=== PATIENT | male | born 1965 | race African-American/Black ===

== ENCOUNTER 2016-04-15 12:01 | Inpatient (IN) | payer OTHER ==
[2016-04-15 13:25] VITALS: BMI 23.1
--- NOTE | 2016-04-15 13:34 | HP ---
Admission ROS [facility] Allergies/Adverse Reactions: Allergies Allergy/AdvReac Type Severity Reaction Status Date / Time No Known Allergies Allergy Verified 03/07/15 11:55 - Ebola screening Have you traveled outside of the country in the last 21 days: No (N) Have you had contact with anyone from an Ebola affected area: No Have you been sick,other than usual withdrawal symptoms: No Do you have a fever: No Patient History - Patient Medical History Hx Anemia: No Hx Asthma: No Hx Chronic Obstructive Pulmonary Disease (COPD): No Hx Cancer: No Hx Cardiac Disorders: No Hx Congestive Heart Failure: No Hx Hypertension: Yes Hx Hypercholesterolemia: No Hx Pacemaker: No HX Cerebrovascular Accident: No Hx Seizures: No Hx Dementia: No Hx Diabetes: No Hx Gastrointestinal Disorders: No Hx Liver Disease: No Hx Genitourinary Disorders: No Hx Sexually Transmitted Disorders: No Hx Renal Disease (ESRD): No Hx Thyroid Disease: No Hx Human Immunodeficiency Virus (HIV): No Hx Hepatitis C: No Hx Depression: No Hx Suicide Attempt: No Hx Bipolar Disorder: No Hx Schizophrenia: No - Patient Surgical History Hx Appendectomy: Yes (age 16) Other Surgical History: broken nose repair 2012 - PPD History Date: 03/09/15 - Smoking Cessation Smoking history: Unknown if ever smoked Have you smoked in the past 12 months: Yes Aproximately how many cigarettes per day: 6 Family Disease History - Family Disease History Family Disease History: Diabetes: Father (alcohol), Heart Disease: Mother (htn, [place]), Other: Brother ( AIDs), Sister ( AIDS) Admission Physical Exam [facility] - Vital Signs Vital Signs: Vital Signs - 24 hr 04/15/16 13:23 Temperature 97.5 F L Pulse Rate 93 H Respiratory 20 Rate Blood Pressure 123/77 Screened but not Admitted - Documentation of Visit Screened but not Admitted: Yes Additional Information/Explanation: patient has deformity of left wrist and nose on arrival to [facility]. for evaluation,. jaime is 0.324bp 123/77,p93,r20,t97.5. to [facility] for evaluation and treatment by [facility]. spoke with ROBYN REY Tomi Breath Alcohol Content Breath Alcohol Content: 0.324 Urine Drug Screen - Results Drug Screen Negative: Yes
[2016-04-15] MEDS ORDERED: diphenhydrAMINE HCL 50 MG CAPSULE PO PRN (19:35)
[2016-04-15] MEDS ORDERED: chlordiazePOXIDE HCL 25 MG CAPSULE PO ONE (19:35)
[2016-04-15] MEDS ORDERED: MAGNESIUM CITRATE 300 ML BOTTLE PO PRN (19:35)
[2016-04-15] MEDS ORDERED: MAG HYDROX/AL HYDROX/SIMETH 30 ML UNIT-DOSE CUP PO PRN (19:35)
[2016-04-15] MEDS ORDERED: chlordiazePOXIDE HCL 25 MG CAPSULE PO PRN (19:35)
[2016-04-15] MEDS ORDERED: P-EPHED 60MG/TRIPROLIDI 2.5MG TABLET PO PRN (19:35)
[2016-04-15] MEDS ORDERED: guaiFENesin/D-METHORPHAN HB 10 ML UNIT-DOSE CUPS PO PRN (19:35)
[2016-04-15] MEDS ORDERED: MENTHOL/PHENOL 1 EACH UD MM PRN (19:35)
[2016-04-15] MEDS ORDERED: LOPERAMIDE HCL 2 MG CAPSULE PO PRN (19:35)
[2016-04-15] MEDS ORDERED: NICOTINE POLACRILEX 2 MG GUM BC PRN (19:35)
[2016-04-15] MEDS ORDERED: MAGNESIUM HYDROX 2400MG/30ML ORAL SUSPENSION 30 ML CUP PO PRN (19:35)
[2016-04-15] MEDS ORDERED: ACETAMINOPHEN 325 MG TABLET (FP) PO PRN (19:35)
[2016-04-15] MEDS ORDERED: IBUPROFEN 400 MG TABLET (FP) PO PRN (19:35)
--- NOTE | 2016-04-15 19:43 | HP ---
CIWA Score - CIWA Score Nausea/Vomitin-Mild Nausea/No Vomiting Muscle Tremors: 3 Anxiety: 4-Mod. Anxious/Guarded Agitation: 4-Moderately Restless Paroxysmal Sweats: 1-Minimal Palms Moist Orientation: 2-Disoriented Date<2 days Tacttile Disturbances: 0-None Auditory Disturbances: 0-None Visual Disturbances: 1-Very Mild Sensitivity Headache: 0-None Present CIWA-Ar Total Score: 16 Admission ROS [facility] - HPI Chief Complaint: WITHDRAWAL SX Allergies/Adverse Reactions: Allergies Allergy/AdvReac Type Severity Reaction Status Date / Time No Known Allergies Allergy Verified 04/15/16 19:14 History of Present Illness: 50 YEARS OLD MALE WITH LONG HISTORY OF ALCOHOL NICOTINE DEPENDENCE, HAS HYPERTENSION AND DEPRESSION, LONGEST SOBRIETY 4 MONTHS IS ADMITTED TO DETOX Exam Limitations: No Limitations - Ebola screening Have you traveled outside of the country in the last 21 days: No (N) Have you had contact with anyone from an Ebola affected area: No Have you been sick,other than usual withdrawal symptoms: No Do you have a fever: No - Review of Systems Constitutional: Chills, Loss of Appetite, Changes in sleep, Unexplained wgt Loss EENT: reports: Other (BRIDGE OF NOSE FX NEGATIVE CT HEAD + FACIAL 04/15/16) Respiratory: reports: No Symptoms reported Cardiac: reports: No Symptoms Reported GI: reports: Poor Appetite, Poor Fluid Intake, Abdominal cramping : reports: No Symptoms Reported Musculoskeletal: reports: Joint Pain (LEFT WRIST) Integumentary: reports: No Symptoms Reported Neuro: reports: Tremors Endocrine: reports: No Symptoms Reported Hematology: reports: No Symptoms Reported Psychiatric: reports: Judgement Intact, Depressed Other Systems: Reviewed and Negative Patient History - Patient Medical History Hx Anemia: No Hx Asthma: No Hx Chronic Obstructive Pulmonary Disease (COPD): No Hx Cancer: No Hx Cardiac Disorders: No Hx Congestive Heart Failure: No Hx Hypertension: Yes Hx Hypercholesterolemia: No Hx Pacemaker: No HX Cerebrovascular Accident: No Hx Seizures: No Hx Dementia: No Hx Diabetes: No Hx Gastrointestinal Disorders: No Hx Liver Disease: No Hx Genitourinary Disorders: No Hx Sexually Transmitted Disorders: No Hx Renal Disease (ESRD): No Hx Thyroid Disease: No Hx Human Immunodeficiency Virus (HIV): No Hx Hepatitis C: No Hx Depression: Yes Hx Suicide Attempt: No Hx Bipolar Disorder: No Hx Schizophrenia: No - Patient Surgical History Past Surgical History: Yes Hx Neurologic Surgery: No Hx Cataract Extraction: No Hx Cardiac Surgery: No Hx Lung Surgery: No Hx Breast Surgery: No Hx Breast Biopsy: No Hx Abdominal Surgery: No Hx Appendectomy: Yes (age 16) Hx Cholecystectomy: No Hx Genitourinary Surgery: No Hx Orthopedic Surgery: No Other Surgical History: broken nose repair 2012 Anesthesia Reaction: No - PPD History Previous Implant?: No Documented Results: Negative w/proof Implanted On Prior [facility] Admission?: Yes Date: 03/09/15 PPD to be Administered?: Yes - Smoking Cessation Smoking history: Unknown if ever smoked Have you smoked in the past 12 months: Yes Aproximately how many cigarettes per day: 20 Cigars Per Day: 0 Hx Chewing Tobacco Use: No Initiated information on smoking cessation: Yes 'Breaking Loose' booklet given: 04/15/16 - Substance & Tx. History Hx Alcohol Use: Yes Hx Substance Use: No Substance Use Type: Alcohol Hx Substance Use Treatment: Yes - Substances Abused Alcohol Route: Oral Frequency: Daily Amount used: LIQUOR- 3 PINTS Age of first use: 19 Date of Last Use: 04/15/16 Family Disease History - Family Disease History Family Disease History: Diabetes: Father (alcohol), Heart Disease: Mother (htn, [place]), Other: Brother ( AIDs), Sister ( AIDS) Admission Physical Exam S - Vital Signs Vital Signs: Vital Signs - 24 hr 04/15/16 13:23 Temperature 97.5 F L Pulse Rate 93 H Respiratory 20 Rate Blood Pressure 123/77 - Physical General Appearance: Yes: Appropriately Dressed, Moderate Distress, Alcohol on Breath, Thin, Tremorous, Irritable, Sweating, Anxious HEENTM: Yes: Hearing grossly Normal, Normal ENT Inspection, Normocephalic, Normal Voice Respiratory: Yes: Chest Non-Tender, Lungs Clear, Normal Breath Sounds, No Respiratory Distress, No Accessory Muscle Use Neck: Yes: Supple, Trachea in good position Breast: Yes: Breasts Symetrical Cardiology: Yes: Regular Rhythm, Regular Rate, S1, S2 Abdominal: Yes: Non Tender, Soft Genitourinary: Yes: Within Normal Limits Back: Yes: Normal Inspection Musculoskeletal: Yes: Gait Steady, Muscle Pain (LEFT WRIST) Extremities: Yes: Normal Range of Motion, Non-Tender, Tremors, Other (LEFT DEFORMED WRIST) Neurological: Yes: Alert, Motor Strength 5/5 (LEFT WRIST WEAKNESS), Normal Response, Depressed Affect Integumentary: Yes: Warm Lymphatic: Yes: Within Normal Limits - Diagnostic (1) Nasal bone fracture Current Visit: Yes Status: Acute Qualifiers: Encounter type: initial encounter Fracture type: closed Qualified Code(s): S02.2XXA - Fracture of nasal bones, initial encounter for closed fracture (2) Alcohol dependence with uncomplicated withdrawal Current Visit: Yes Status: Acute (3) HTN (hypertension) Current Visit: Yes Status: Acute Qualifiers: Hypertension type: essential hypertension Qualified Code(s): I10 - Essential (primary) hypertension (4) Nicotine dependence Current Visit: Yes Status: Acute Qualifiers: Nicotine product type: cigarettes Substance use status: uncomplicated Qualified Code(s): F17.210 - Nicotine dependence, cigarettes, uncomplicated (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
[2016-04-15] MEDS: chlordiazePOXIDE HCL 25 MG CAPSULE PO SCH (22:39)
[2016-04-15] MEDS: METOPROLOL TARTRATE 50 MG TABLET (FP) PO SCH (22:39)
[2016-04-15] MEDS: THIAMINE HCL 100 MG TABLET (FP) PO SCH (22:39)
[2016-04-16] MEDS: chlordiazePOXIDE HCL 25 MG CAPSULE PO SCH ×4 (05:30→22:54)
--- NOTE | 2016-04-16 10:27 | PN ---
S CIWA - CIWA Score Nausea/Vomitin Muscle Tremors: 3 Anxiety: 3 Agitation: 3 Paroxysmal Sweats: 1-Minimal Palms Moist Orientation: 0-Oriented Tacttile Disturbances: 1-Very Mild Itch/Numbness Auditory Disturbances: 1-Very Mild Visual Disturbances: 1-Very Mild Sensitivity Headache: 2-Mild CIWA-Ar Total Score: 18 BHS Progress Note (SOAP) Subjective: ALERT,IRRITABLE,ANXIOUS,INTERRUPTED SLEEP,TREMOR,DEFORMITY OF NOSE AND LEFT WRIST Objective: 04/16/16 10:25 Vital Signs Temperature 98.4 F 04/16/16 09:33 Pulse Rate 92 H 04/16/16 09:33 Respiratory Rate 16 04/16/16 09:33 Blood Pressure 139/74 04/16/16 09:33 O2 Sat by Pulse Oximetry (%) EKG NSR,NORMAL ECG LABS PENDING Assessment: 04/16/16 10:26 WITHDRAWAL SYMPTOM Plan: CONTINUE DETOX
--- NOTE | 2016-04-16 10:28 | CONSULT ---
[facility] Psychiatric Consult - Data Date of interview: 04/16/16 Admission source: [facility] Identifying data: Readmission to [facility] for this 50 y/o AA male seeking detox treatment on for alcohol dependence.Patient is in a common-law relationship,a father of eight,homeless (skilled nursing),unemployed and supported on food stamps. Substance Abuse History: - Smoking Cessation. Smoking history: Unknown if ever smoked. Have you smoked in the past 12 months: Yes. Aproximately how many cigarettes per day: 20. Cigars Per Day: 0. Hx Chewing Tobacco Use: No. Initiated information on smoking cessation: Yes. 'Breaking Loose' booklet given : 04/15/16. - Substance & Tx. History. Hx Alcohol Use: Yes. Hx Substance Use : No. Substance Use Type: Alcohol. Hx Substance Use Treatment: Yes. - Substances Abused. Alcohol. Route: Oral. Frequency: Daily. Amount used: LIQUOR- 3 PINTS. Age of first use: 19. Date of Last Use: 04/15/16. Patient confirmed. Medical History: Significant for hypertension and old fracture of left wrist. Psychiatric History: Patient denies. Physical/Sexual Abuse/Trauma History: Patient denies. Additional Comment: Drug screen is negative. Mental Status Exam - Mental Status Exam Alert and Oriented to: Time, Place, Person Cognitive Function: Good Patient Appearance: Well Groomed Mood: Nervous, Withdrawn, Hopeful Affect: Appropriate, Constricted Patient Behavior: Fatigued, Talkative, Appropriate, Cooperative Speech Pattern: Clear, Appropriate Voice Loudness: Normal Thought Process: Goal Oriented Thought Disorder: Not Present Hallucinations: Denies Suicidal Ideation: Denies Homicidal Ideation: Denies Insight/Judgement: Poor Sleep: Well (as per self-report) Appetite: Good Muscle strength/Tone: Normal Gait/Station: Normal Psychiatric Findings - Problem List ([place] 1, 2,3) (1) Alcohol dependence with uncomplicated withdrawal Current Visit: Yes Status: Acute (2) Nicotine dependence Current Visit: Yes Status: Acute Qualifiers: Nicotine product type: cigarettes Substance use status: uncomplicated Qualified Code(s): F17.210 - Nicotine dependence, cigarettes, uncomplicated (3) HTN (hypertension) Current Visit: Yes Status: Chronic Qualifiers: Hypertension type: essential hypertension Qualified Code(s): I10 - Essential (primary) hypertension (4) Nasal bone fracture Current Visit: Yes Status: Acute Qualifiers: Encounter type: initial encounter Fracture type: closed Qualified Code(s): S02.2XXA - Fracture of nasal bones, initial encounter for closed fracture (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
[2016-04-16 10:34] LABS: MCHC 33.2 g/dl (32.0-35.9); MEAN CELL VOLUME 90.3 fl (80-96); MEAN PLT VOLUME 8.5 fl (7.5-11.1); PLATELET COUNT 152 K/MM3 (134-434); RDW 13.7 % (11.9-15.9)
--- NOTE | 2016-04-16 10:38 | EKG ---
Test Reason : Blood Pressure : / mmHG Vent. Rate : 082 BPM Atrial Rate : 082 BPM P-R Int : 124 ms QRS Dur : 088 ms QT Int : 376 ms P-R-T Axes : 075 040 019 degrees QTc Int : 439 ms POOR DATA QUALITY, INTERPRETATION MAY BE ADVERSELY AFFECTED NORMAL SINUS RHYTHM NORMAL ECG NO PREVIOUS ECGS AVAILABLE Confirmed by PAU FARR MD ([id number]) on 04/16/2016 10:38:13 AM Referred By: Confirmed By:PAU FARR MD
[2016-04-16] MEDS: NICOTINE 21 MG/24 HOURS TOPICAL PATCH TD SCH (10:45)
[2016-04-16] MEDS: HYDROCHLOROTHIAZIDE 25 MG TABLET (FP) PO SCH (10:45)
[2016-04-16] MEDS: METOPROLOL TARTRATE 50 MG TABLET (FP) PO SCH ×2 (10:45→22:54)
[2016-04-16] MEDS: PRENATAL VITAMINS W/ FOLIC ACID TABLET (FP) PO SCH (10:45)
[2016-04-16 10:48] LABS: ALBUMIN 3.5 g/dl (3.4-5.0); ANION GAP 8 (8-16); CALCIUM 8.2 mg/dL (8.5-10.1); CO2 29 mmol/L (21-32); GLUCOSE,RANDOM 66 mg/dL (74-106)
[2016-04-16 10:53] LABS: ALK PHOS 69 U/L (45-117); CREATININE 0.7 mg/dL (0.7-1.3); SGOT/AST 87 U/L (15-37); SGPT/ALT 58 U/L (12-78); TOT PROT 6.4 g/dl (6.4-8.2)
[2016-04-16] MEDS: hydrOXYzine PAMOATE 50 MG CAPSULE (FP) PO PRN (14:52)
[2016-04-16] MEDS: THIAMINE HCL 100 MG TABLET (FP) PO SCH (22:54)
[2016-04-17] MEDS: chlordiazePOXIDE HCL 25 MG CAPSULE PO SCH ×2 (07:12→10:44)
[2016-04-17 10:10] VITALS: BP 119/99; PULSE 122; TEMP 98.2
[2016-04-17 10:23] LABS: URINE APPEARANCE CLEAR; URINE BILIRUBIN NEGATIVE (NEGATIVE); URINE BLOOD NEGATIVE (NEGATIVE); URINE COLOR AMBER; URINE GLUCOSE (UA) NEGATIVE (NEGATIVE); URINE KETONE TRACE (NEGATIVE); URINE LEUK ESTERASE NEGATIVE (NEGATIVE); URINE NITRITE NEGATIVE (NEGATIVE); URINE PROTEIN NEGATIVE (NEGATIVE); URINE UROBILINOGEN 4.0 E.U/dl E.U./dl (0.2-1.0)
[2016-04-17] MEDS: METOPROLOL TARTRATE 50 MG TABLET (FP) PO SCH (10:44)
[2016-04-17] MEDS: NICOTINE 21 MG/24 HOURS TOPICAL PATCH TD SCH (10:44)
[2016-04-17] MEDS: HYDROCHLOROTHIAZIDE 25 MG TABLET (FP) PO SCH (10:44)
[2016-04-17] MEDS: hydrOXYzine PAMOATE 50 MG CAPSULE (FP) PO PRN (10:44)
[2016-04-17] MEDS: PRENATAL VITAMINS W/ FOLIC ACID TABLET (FP) PO SCH (10:45)
--- NOTE | 2016-04-17 11:27 | PN ---
S CIWA - CIWA Score Nausea/Vomitin Muscle Tremors: 3 Anxiety: 2 Agitation: 2 Paroxysmal Sweats: 1-Minimal Palms Moist Orientation: 0-Oriented Tacttile Disturbances: 1-Very Mild Itch/Numbness Auditory Disturbances: 1-Very Mild Visual Disturbances: 1-Very Mild Sensitivity Headache: 2-Mild CIWA-Ar Total Score: 16 S Progress Note (SOAP) Subjective: ALERT,IRRITABLE,ANXIOUS,INTERRUPTED SLEEP,TREMOR Objective: 04/17/16 11:26 Vital Signs Temperature 98.2 F 04/17/16 10:10 Pulse Rate 122 H 04/17/16 10:10 Respiratory Rate 18 04/17/16 10:10 Blood Pressure 119/99 04/17/16 10:10 O2 Sat by Pulse Oximetry (%) Laboratory Last Values WBC 6.0 K/mm3 (4.0-10.0) 04/16/16 07:30 RBC 3.87 M/mm3 (4.00-5.60) L 04/16/16 07:30 Hgb 11.6 GM/dL (11.7-16.9) L 04/16/16 07:30 Hct 34.9 % (35.4-49) L 04/16/16 07:30 MCV 90.3 fl (80-96) 04/16/16 07:30 MCHC 33.2 g/dl (32.0-35.9) 04/16/16 07:30 RDW 13.7 % (11.9-15.9) 04/16/16 07:30 Plt Count 152 K/MM3 (134-434) 04/16/16 07:30 MPV 8.5 fl (7.5-11.1) D 04/16/16 07:30 Sodium 141 mmol/L (136-145) 04/16/16 07:30 Potassium 3.5 mmol/L (3.5-5.1) 04/16/16 07:30 Chloride 104 mmol/L (98-107) 04/16/16 07:30 Carbon Dioxide 29 mmol/L (21-32) 04/16/16 07:30 Anion Gap 8 (8-16) 04/16/16 07:30 BUN 6 mg/dL (7-18) L D 04/16/16 07:30 Creatinine 0.7 mg/dL (0.7-1.3) 04/16/16 07:30 Creat Clearance w eGFR > 60 (>60) 04/16/16 07:30 Random Glucose 66 mg/dL (74-106) L D 04/16/16 07:30 Calcium 8.2 mg/dL (8.5-10.1) L 04/16/16 07:30 Total Bilirubin 1.0 mg/dL (0.2-1.0) D 04/16/16 07:30 AST 87 U/L (15-37) H 04/16/16 07:30 ALT 58 U/L (12-78) 04/16/16 07:30 Alkaline Phosphatase 69 U/L (45-117) 04/16/16 07:30 Total Protein 6.4 g/dl (6.4-8.2) 04/16/16 07:30 Albumin 3.5 g/dl (3.4-5.0) 04/16/16 07:30 Urine Color [place] 04/17/16 08:00 Urine Appearance Clear 04/17/16 08:00 Urine pH 6.0 (5.0-8.0) 04/17/16 08:00 Ur Specific [place] 1.020 (1.001-1.035) 04/17/16 08:00 Urine Protein Negative (NEGATIVE) 04/17/16 08:00 Urine Glucose (UA) Negative (NEGATIVE) 04/17/16 08:00 Urine Ketones Trace (NEGATIVE) H 04/17/16 08:00 Urine Blood Negative (NEGATIVE) 04/17/16 08:00 Urine Nitrite Negative (NEGATIVE) 04/17/16 08:00 Urine Bilirubin Negative (NEGATIVE) 04/17/16 08:00 Urine Urobilinogen 4.0 e.u/dl E.U./dl (0.2-1.0) 04/17/16 08:00 Ur Leukocyte Esterase Negative (NEGATIVE) 04/17/16 08:00 RPR Titer Nonreactive (NONREACTIVE) 04/16/16 07:30 Assessment: 04/17/16 11:26 WITHDRAWAL SYMPTOM Plan: CONTINUE DETOX,BGM IN AM
--- NOTE | 2016-04-17 16:02 | PN ---
[facility] Progress Note Note: PATIENT DID NOT WANT TO COMPLETE TREATMENT DUE TO FAMILY EMERGENCY,SEEN BY COUNSELOR,SIGNED RELEASE AMA, DID NOT WANT TO WAIT,SIGNED RELEASE AMA,STATED HE WILL FOLLOW UP WITH HIS PMD AND SPECIALIST FOR FRACTURE OF NOSE AND LEFT WRIST
--- NOTE | 2016-04-17 16:15 | DS ---
[facility] Detox Discharge Summary Admission Date: 04/15/16 Discharge Date: 04/17/16 - History Present History: Alcohol Dependence Additional Comments: PATIENT SIGNED RELEASE AMA DUE TO FAMILY EMERGENCY,SIGNED RELEASE AMA,WILL SEE HIS PMD FOR MEDICAL PROBLEM,ORHOPEDIST FOR DEFORMITY AND OLD FRACTURE LEFT WRIST , ENT SPECIALIST FOR FRCATURE OF NOSE Pertinent Past History: HYPERTENSION FX OF NASAL BONE FX OF LEFT WRIST WITH DEPORMITY OLD - Physical Exam Results Vital Signs: Vital Signs Temperature 98.2 F 04/17/16 10:10 Pulse Rate 122 H 04/17/16 10:10 Respiratory Rate 18 04/17/16 10:10 Blood Pressure 119/99 04/17/16 10:10 O2 Sat by Pulse Oximetry (%) Pertinent Admission Physical Exam Findings: WITHDRAWAL SYMPTOM INTOXICATED - Medication Discharge Medications: Ambulatory Orders Hydrochlorothiazide [Hctz -] 25 mg PO DAILY 03/07/15 Metoprolol Tartrate [Lopressor] 100 mg PO DAILY 03/07/15 - AMA Did Patient Leave Against Medical Advice: Yes
[2016-04-17] MEDS ORDERED: chlordiazePOXIDE 5 MG CAPSULE PO SCH (23:00)
[2016-04-18] MEDS ORDERED: chlordiazePOXIDE HCL 10 MG CAPSULE PO SCH (23:00)
== END 2016-04-17 02:21 | disposition left against medical advice (07) | DRG 770 ==
LOC: YASAS 12:01 → Y6N 19:25
PROVIDERS: ADMIT Internal Medicine; ATTEND Internal Medicine
PROC: HZ2ZZZZ Detoxification Services for Substance Abuse Treatment (ICD-10-PCS; principal; 2016-04-15)
DX: F10.230 Alcohol dependence with withdrawal, uncomplicated (principal); F17.210 Nicotine dependence, cigarettes, uncomplicated; I10 Essential (primary) hypertension; S02.2XXD Fracture of nasal bones, subsequent encounter for fracture with routine healing; X58.XXXD Exposure to other specified factors, subsequent encounter
CPT/HCPCS: 36415; 80053; 81003; 85027; 86593; 86803; 93005; 93010

== ENCOUNTER 2016-04-15 13:56 | Emergency (ER) | payer OTHER ==
[2016-04-15 14:12] VITALS: TEMP 98.3; BMI 23.1
[2016-04-15] MEDS ORDERED: SODIUM CHLORIDE 1,000 ML IV STA (14:28)
--- NOTE | 2016-04-15 15:01 | PDOC ---
*Physical Exam - Vital Signs Last Vital Signs Temp Pulse Resp BP Pulse Ox 98.3 F 103 H 20 142/74 96 04/15/16 14:08 04/15/16 14:08 04/15/16 14:08 04/15/16 14:08 04/15/16 14:08 ED Treatment Course - RADIOLOGY Radiology Studies Ordered: Category Date Time Status FACIAL BONES CT W/O CONTRAST [CT] Stat CT Scan 04/15/16 14:[address] WITHOUT CONTRAST [CT] Stat CT Scan 04/15/16 14:38 Ordered WRIST W/HAND-LEFT* [RAD] Stat Radiology 04/15/16 14:39 Ordered
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
[2016-04-15 15:09] LABS: BASOPHIL 0.3 % (0-2.0); EOSINOPHIL 1.1 % (0-4.5); MCHC 33.7 g/dl (32.0-35.9); MEAN CELL VOLUME 89.1 fl (80-96); MEAN PLT VOLUME 7.7 fl (7.5-11.1); NEUTROPHILS 48.9 % (42.8-82.8); PLATELET COUNT 157 K/MM3 (134-434); RDW 14.1 % (11.9-15.9); WHITE BLOOD COUNT 6.9 K/mm3 (4.0-10.0)
[2016-04-15 15:31] LABS: ALBUMIN 4.2 g/dl (3.4-5.0); ANION GAP 14 (8-16); CALCIUM 8.5 mg/dL (8.5-10.1); CO2 28 mmol/L (21-32); CREATININE 0.8 mg/dL (0.7-1.3); GLUCOSE,RANDOM 115 mg/dL (74-106); SGOT/AST 74 U/L (15-37); SGPT/ALT 58 U/L (12-78)
[2016-04-15 15:32] LABS: ALK PHOS 79 U/L (45-117); BILIRUBIN,TOTAL 0.6 mg/dL (0.2-1.0); TOT PROT 7.2 g/dl (6.4-8.2)
[2016-04-15 18:43] VITALS: BP 145/75; PULSE 75
== END 2016-04-15 18:42 | disposition home or self-care (01) ==
LOC: JER 13:56
PROC: 3E0337Z Introduction of Electrolytic and Water Balance Substance into Peripheral Vein, Percutaneous Approach (ICD-10-PCS; principal; 2016-04-15)
DX: F10.120 Alcohol abuse with intoxication, uncomplicated (principal); S02.2XXA Fracture of nasal bones, initial encounter for closed fracture; W19.XXXA Unspecified fall, initial encounter; Y93.89 Activity, other specified; Y92.89 Other specified places as the place of occurrence of the external cause; Y99.8 Other external cause status; Y90.8 Blood alcohol level of 240 mg/100 ml or more
CPT/HCPCS: 36415; 70450-TC; 70486-TC; 73110-TC-LT; 73130-TC-LT; 80053; 80307; 85025; 96360; 99283-25

== ENCOUNTER 2016-05-21 12:15 | Inpatient (IN) | payer OTHER ==
[2016-05-21 12:31] VITALS: BMI 22.8
--- NOTE | 2016-05-21 12:57 | HP ---
CIWA Score - CIWA Score Nausea/Vomitin-Mild Nausea/No Vomiting Muscle Tremors: 3 Anxiety: 4-Mod. Anxious/Guarded Agitation: 1-Slight > Activity Paroxysmal Sweats: 1-Minimal Palms Moist Orientation: 0-Oriented Tacttile Disturbances: 1-Very Mild Itch/Numbness Auditory Disturbances: 2-Mild Harshness/Frighten Visual Disturbances: 1-Very Mild Sensitivity Headache: 1-Very Mild CIWA-Ar Total Score: 15 Admission ROS BHS - HPI Chief Complaint: I need help to stop drinking Allergies/Adverse Reactions: Allergies Allergy/AdvReac Type Severity Reaction Status Date / Time No Known Allergies Allergy Verified 05/21/16 12:31 History of Present Illness: 50 yo gentleman here for detox from alcohol - history of seizure two weeks ago - on 05/10/16 fractured his wrist in a fall - was on [facility] and sent to [facility] for xray -where he refused to be casted. This history likely not accurate as he admits he cannot remember much of anything - has black outs. Exam Limitations: Clinical Condition - Ebola screening Have you traveled outside of the country in the last 21 days: No Have you had contact with anyone from an Ebola affected area: No Have you been sick,other than usual withdrawal symptoms: No Do you have a fever: No - Review of Systems Constitutional: Loss of Appetite, Malaise, Changes in sleep, Weakness EENT: reports: No Symptoms Reported Respiratory: reports: No Symptoms reported Cardiac: reports: No Symptoms Reported GI: reports: Indigestion : reports: Frequency Musculoskeletal: reports: Other (right hand with pain, mild swelling dorsal aspect of hand - able to make a fist but painful - states he has a fracture but refused casting) Integumentary: reports: Dryness Neuro: reports: Headache Endocrine: reports: No Symptoms Reported Hematology: reports: No Symptoms Reported Psychiatric: reports: Judgement Intact, Mood/Affect Appropiate, Orientated x3, Anxious Other Systems: Reviewed and Negative Patient History - Patient Medical History Hx Anemia: No Hx Asthma: No Hx Chronic Obstructive Pulmonary Disease (COPD): No Hx Cancer: No Hx Cardiac Disorders: No Hx Congestive Heart Failure: No Hx Hypertension: Yes Hx Hypercholesterolemia: No Hx Pacemaker: No HX Cerebrovascular Accident: No Hx Seizures: Yes (2 weeks ago) Hx Dementia: No Hx Diabetes: No Hx Gastrointestinal Disorders: No Hx Liver Disease: No Hx Genitourinary Disorders: No Hx Sexually Transmitted Disorders: No Hx Renal Disease (ESRD): No Hx Thyroid Disease: No Hx Human Immunodeficiency Virus (HIV): No Hx Hepatitis C: No Hx Depression: Yes Hx Suicide Attempt: No Hx Bipolar Disorder: No Hx Schizophrenia: No Other Medical History: fractured right hand 05/10/16 -x ray at [facility] - refused casting - Patient Surgical History Past Surgical History: Yes Hx Neurologic Surgery: No Hx Cataract Extraction: No Hx Cardiac Surgery: No Hx Lung Surgery: No Hx Breast Surgery: No Hx Breast Biopsy: No Hx Abdominal Surgery: No Hx Appendectomy: Yes (age 16) Hx Cholecystectomy: No Hx Genitourinary Surgery: No Hx Section: No Hx Orthopedic Surgery: No Other Surgical History: broken nose repair 2012 Anesthesia Reaction: No - PPD History Date: 04/17/16 PPD to be Administered?: No - Reproductive History Patient is a Female of Child Bearing Age (11 -55 yrs old): No (male) - Smoking Cessation Smoking history: Current every day smoker Have you smoked in the past 12 months: Yes Aproximately how many cigarettes per day: 20 Cigars Per Day: 0 Hx Chewing Tobacco Use: No Initiated information on smoking cessation: Yes 'Breaking Loose' booklet given: 05/21/16 (given on floor) - Substance & Tx. History Hx Alcohol Use: Yes Hx Substance Use: No Substance Use Type: Alcohol Hx Substance Use Treatment: Yes (detox, rehab) - Substances Abused Alcohol Route: Oral Frequency: Daily Amount used: 2 pints liquor, 2 six packs beer Age of first use: 20 Date of Last Use: 05/21/16 Family Disease History - Family Disease History Family Disease History: Diabetes: Father (alcohol, , cirrhosis), Heart Disease: Mother (htn, [place]. , stroke), Other: Brother (one AIDs, etoh, ), Sister (one AIDS), Son (learning problems), Daughter ( learning problems) Admission Physical Exam S - Vital Signs Vital Signs: Vital Signs - 24 hr 05/21/16 12:19 Temperature 96.5 F L Pulse Rate 90 Respiratory 20 Rate Blood Pressure 119/80 - Physical General Appearance: Yes: Nourished, Appropriately Dressed, Mild Distress, Intoxicated, Anxious HEENTM: Yes: Hearing grossly Normal, Normal ENT Inspection, Normocephalic, Normal Voice, Pharynx Normal Respiratory: Yes: Normal Breath Sounds, No Respiratory Distress Neck: Yes: No masses,lesions,Nodules Breast: Yes: Breast Exam Deferred Cardiology: Yes: Regular Rhythm, Regular Rate Abdominal: Yes: Soft Genitourinary: Yes: Frequency Back: Yes: Normal Inspection Musculoskeletal: Yes: full range of Motion, Gait Steady Extremities: Yes: Normal Inspection, Normal Range of Motion Neurological: Yes: Fully Oriented, Alert, Normal Mood/Affect, Normal Response Integumentary: Yes: Normal Color, Dry, Warm Lymphatic: Yes: Within Normal Limits - Diagnostic (1) Alcohol dependence with uncomplicated withdrawal Current Visit: Yes Status: Chronic (2) Nicotine dependence Current Visit: Yes Status: Chronic Qualifiers: Nicotine product type: cigarettes Substance use status: uncomplicated Qualified Code(s): F17.210 - Nicotine dependence, cigarettes, uncomplicated (3) HTN (hypertension) Current Visit: Yes Status: Chronic Qualifiers: Hypertension type: essential hypertension Qualified Code(s): I10 - Essential (primary) hypertension (4) Right wrist injury Current Visit: Yes Status: Chronic Qualifiers: Encounter type: subsequent encounter Qualified Code(s): S69.91XD - Unspecified injury of right wrist, hand and finger(s), subsequent encounter Cleared for Admission [facility] - Detox or Rehab [facility] Level of Care: Medically Managed Detox Regimen/Protocol: Librium [facility] Breath Alcohol Content Breath Alcohol Content: 0.280 Urine Drug Screen - Results Drug Screen Negative: No Urine Drug Screen Results: BZO-Benzodiazepines
[2016-05-21] MEDS ORDERED: guaiFENesin/D-METHORPHAN HB 10 ML UNIT-DOSE CUPS PO PRN (13:06)
[2016-05-21] MEDS ORDERED: IBUPROFEN 400 MG TABLET (FP) PO PRN (13:06)
[2016-05-21] MEDS ORDERED: chlordiazePOXIDE HCL 25 MG CAPSULE PO PRN (13:06)
[2016-05-21] MEDS ORDERED: MAGNESIUM HYDROX 2400MG/30ML ORAL SUSPENSION 30 ML CUP PO PRN (13:06)
[2016-05-21] MEDS ORDERED: LOPERAMIDE HCL 2 MG CAPSULE PO PRN (13:06)
[2016-05-21] MEDS ORDERED: ACETAMINOPHEN 325 MG TABLET (FP) PO PRN (13:06)
[2016-05-21] MEDS ORDERED: P-EPHED 60MG/TRIPROLIDI 2.5MG TABLET PO PRN (13:06)
[2016-05-21] MEDS ORDERED: MENTHOL/PHENOL 1 EACH UD MM PRN (13:06)
[2016-05-21] MEDS ORDERED: hydrOXYzine PAMOATE 50 MG CAPSULE (FP) PO PRN (13:06)
[2016-05-21] MEDS ORDERED: MAG HYDROX/AL HYDROX/SIMETH 30 ML UNIT-DOSE CUP PO PRN (13:06)
[2016-05-21] MEDS ORDERED: MAGNESIUM CITRATE 300 ML BOTTLE PO PRN (13:06)
[2016-05-21] MEDS ORDERED: chlordiazePOXIDE HCL 25 MG CAPSULE PO ONE (13:15)
--- NOTE | 2016-05-21 16:27 | CONSULT ---
[facility] Psychiatric Consult - Data Date of interview: 05/21/16 Admission source: [facility] Identifying data: Fourth admission to [facility] for this 50 y/o AA male seeking detox treatment on for alcohol dependence.Patient is in a common-law relationship,a father of twelve (reported this time),homeless (penitentiary), unemployed and supported on Public Assistance. Substance Abuse History: - Smoking Cessation. Smoking history: Current every day smoker. Have you smoked in the past 12 months: Yes. Aproximately how many cigarettes per day: 20. Cigars Per Day: 0. Hx Chewing Tobacco Use: No. Initiated information on smoking cessation: Yes. 'Breaking Loose' booklet given : 05/21/16 (given on floor). - Substance & Tx. History. Hx Alcohol Use: Yes. Hx Substance Use: No. Substance Use Type: Alcohol. Hx Substance Use Treatment : Yes (detox, rehab). - Substances Abused. Alcohol. Route: Oral. Frequency: Daily. Amount used: 2 pints liquor, 2 six packs beer. Age of first use: 20. Date of Last Use: 05/21/16. Confirmed by the patient in this interview. Medical History: History of withdrawal seizures,hypertension,recent fracture of right hand (05/10/16),old fracture of left wrist and appendectomy.. Psychiatric History: Patient denies. Physical/Sexual Abuse/Trauma History: Patient denies. Additional Comment: Urine Drug Screen Results: BZO-Benzodiazepines.Noted. Mental Status Exam - Mental Status Exam Alert and Oriented to: Time, Place, Person Cognitive Function: Grossly Intact Patient Appearance: Unkempt, Disheveled Mood: Withdrawn Affect: Mood Congruent Patient Behavior: Sedated (mildly), Fatigued Speech Pattern: Delayed (but clear and relevant) Voice Loudness: Moderately Soft/Quiet Thought Process: Goal Oriented Thought Disorder: Not Present Hallucinations: Denies Suicidal Ideation: Denies Homicidal Ideation: Denies Insight/Judgement: Poor Sleep: Fair Appetite: Good Muscle strength/Tone: Normal Gait/Station: Normal Psychiatric Findings - Problem List ([place] 1, 2,3) (1) Alcohol dependence with uncomplicated withdrawal Current Visit: Yes Status: Acute (2) Alcohol-induced mood disorder Current Visit: Yes Status: Acute (3) Nicotine dependence Current Visit: Yes Status: Acute Qualifiers: Nicotine product type: cigarettes Substance use status: uncomplicated Qualified Code(s): F17.210 - Nicotine dependence, cigarettes, uncomplicated (4) HTN (hypertension) Current Visit: Yes Status: Chronic Qualifiers: Hypertension type: essential hypertension Qualified Code(s): I10 - Essential (primary) hypertension (5) Right wrist injury Current Visit: No Status: Chronic Qualifiers: Encounter type: subsequent encounter Qualified Code(s): S69.91XD - Unspecified injury of right wrist, hand and finger(s), subsequent encounter (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
[2016-05-21] MEDS: chlordiazePOXIDE HCL 25 MG CAPSULE PO SCH ×2 (17:23→22:41)
[2016-05-21 18:02] LABS: URINE APPEARANCE CLEAR; URINE BILIRUBIN NEGATIVE (NEGATIVE); URINE BLOOD NEGATIVE (NEGATIVE); URINE COLOR STRAW; URINE GLUCOSE (UA) NEGATIVE (NEGATIVE); URINE KETONE NEGATIVE (NEGATIVE); URINE LEUK ESTERASE NEGATIVE (NEGATIVE); URINE NITRITE NEGATIVE (NEGATIVE); URINE PROTEIN NEGATIVE (NEGATIVE); URINE UROBILINOGEN NEGATIVE E.U./dl (0.2-1.0)
[2016-05-21] MEDS: THIAMINE HCL 100 MG TABLET (FP) PO SCH (22:41)
[2016-05-21] MEDS: diphenhydrAMINE HCL 50 MG CAPSULE PO PRN (22:42)
[2016-05-22] MEDS: chlordiazePOXIDE HCL 25 MG CAPSULE PO SCH ×4 (05:54→22:17)
[2016-05-22] MEDS: HYDROCHLOROTHIAZIDE 25 MG TABLET (FP) PO SCH (10:06)
[2016-05-22] MEDS: PRENATAL VITAMINS W/ FOLIC ACID TABLET (FP) PO SCH (10:06)
[2016-05-22] MEDS: NICOTINE 21 MG/24 HOURS TOPICAL PATCH TD SCH (10:07)
[2016-05-22 10:15] LABS: MCH 31.2 pg (25.7-33.7); MCHC 33.9 g/dl (32.0-35.9); MEAN PLT VOLUME 8.5 fl (7.5-11.1); PLATELET COUNT 142 K/MM3 (134-434); RDW 16.6 % (11.9-15.9); WHITE BLOOD COUNT 4.9 K/mm3 (4.0-10.0)
[2016-05-22 10:16] LABS: ALBUMIN 3.6 g/dl (3.4-5.0); ALK PHOS 83 U/L (45-117); ANION GAP 12 (8-16); BILIRUBIN,TOTAL 0.8 mg/dL (0.2-1.0); CALCIUM 8.4 mg/dL (8.5-10.1); CO2 26 mmol/L (21-32); CREATININE 0.6 mg/dL (0.7-1.3); GLUCOSE,RANDOM 80 mg/dL (74-106); SGOT/AST 68 U/L (15-37); SGPT/ALT 57 U/L (12-78); TOT PROT 6.6 g/dl (6.4-8.2)
--- NOTE | 2016-05-22 15:16 | PN ---
S CIWA - CIWA Score Nausea/Vomitin Muscle Tremors: 3 Anxiety: 4-Mod. Anxious/Guarded Agitation: 3 Paroxysmal Sweats: No Perspiration Orientation: 0-Oriented Tacttile Disturbances: 1-Very Mild Itch/Numbness Auditory Disturbances: 0-None Visual Disturbances: 0-None Headache: 2-Mild CIWA-Ar Total Score: 16 BHS Progress Note (SOAP) Subjective: Anxious, sweating, tremor, nausea Objective: 05/22/16 15:15 Last Vital Signs Temp Pulse Resp BP Pulse Ox 97.6 F 97 H 18 148/90 05/22/16 13:41 05/22/16 13:41 05/22/16 13:41 05/22/16 13:41 Laboratory Tests 05/21/16 05/22/16 05/22/16 17:54 07:50 07:50 WBC 4.9 RBC 3.76 L Hgb 11.7 Hct 34.5 L MCV 92.0 MCHC 33.9 RDW 16.6 H D Plt Count 142 MPV 8.5 Sodium 141 Potassium 3.8 Chloride 103 Carbon Dioxide 26 Anion Gap 12 BUN 6 L Creatinine 0.6 L Creat Clearance w eGFR > 60 Random Glucose 80 D Calcium 8.4 L Total Bilirubin 0.8 AST 68 H D ALT 57 Alkaline Phosphatase 83 D Total Protein 6.6 Albumin 3.6 Urine Color Straw Urine Appearance Clear Urine pH 5.0 Ur Specific [place] 1.004 Urine Protein Negative Urine Glucose (UA) Negative Urine Ketones Negative Urine Blood Negative Urine Nitrite Negative Urine Bilirubin Negative Urine Urobilinogen Negative Ur Leukocyte Esterase Negative RPR Titer 05/22/16 07:50 WBC RBC Hgb Hct MCV MCHC RDW Plt Count MPV Sodium Potassium Chloride Carbon Dioxide Anion Gap BUN Creatinine Creat Clearance w eGFR Random Glucose Calcium Total Bilirubin AST ALT Alkaline Phosphatase Total Protein Albumin Urine Color Urine Appearance Urine pH Ur Specific [place] Urine Protein Urine Glucose (UA) Urine Ketones Urine Blood Urine Nitrite Urine Bilirubin Urine Urobilinogen Ur Leukocyte Esterase RPR Titer Nonreactive Labs noted Assessment: 05/22/16 15:15 Withdrawal symptoms Plan: Continue detox
[2016-05-22] MEDS: THIAMINE HCL 100 MG TABLET (FP) PO SCH (22:17)
[2016-05-22] MEDS: diphenhydrAMINE HCL 50 MG CAPSULE PO PRN (22:17)
[2016-05-23] MEDS: chlordiazePOXIDE HCL 25 MG CAPSULE PO SCH ×2 (05:43→10:18)
[2016-05-23] MEDS: HYDROCHLOROTHIAZIDE 25 MG TABLET (FP) PO SCH (10:18)
[2016-05-23] MEDS: NICOTINE 21 MG/24 HOURS TOPICAL PATCH TD SCH (10:18)
[2016-05-23] MEDS: PRENATAL VITAMINS W/ FOLIC ACID TABLET (FP) PO SCH (10:18)
--- NOTE | 2016-05-23 12:08 | EKG ---
Test Reason : Blood Pressure : / mmHG Vent. Rate : 076 BPM Atrial Rate : 076 BPM P-R Int : 120 ms QRS Dur : 084 ms QT Int : 376 ms P-R-T Axes : 063 048 030 degrees QTc Int : 423 ms SINUS RHYTHM WITH OCCASIONAL PREMATURE VENTRICULAR COMPLEXES OTHERWISE NORMAL ECG WHEN COMPARED WITH ECG OF 21-MAY-2016 15:29, SINUS RHYTHM HAS REPLACED ATRIAL FLUTTER Confirmed by TERRY ARELLANO MD ([id number]) on 05/23/2016 12:07:55 PM Referred By: Esteban Kirkland Confirmed By:TERRY ARELLANO MD
--- NOTE | 2016-05-23 14:28 | PN ---
S CIWA - CIWA Score Nausea/Vomitin-No Nausea/No Vomiting Muscle Tremors: 3 Anxiety: 4-Mod. Anxious/Guarded Agitation: 3 Paroxysmal Sweats: 3 Orientation: 0-Oriented Tacttile Disturbances: 0-None Auditory Disturbances: 0-None Visual Disturbances: 0-None Headache: 0-None Present CIWA-Ar Total Score: 13 BHS Progress Note (SOAP) Subjective: anxiety,tremors,sweating,interrupted sleep,restless Objective: 05/23/16 14:27 Vital Signs - 8 hr 05/23/16 10:25 Temperature 96.7 F L Pulse Rate 130 H Respiratory 20 Rate Blood Pressure 126/89 Laboratory Tests 05/21/16 05/22/16 05/22/16 17:54 07:50 07:50 WBC 4.9 RBC 3.76 L Hgb 11.7 Hct 34.5 L MCV 92.0 MCHC 33.9 RDW 16.6 H D Plt Count 142 MPV 8.5 Sodium 141 Potassium 3.8 Chloride 103 Carbon Dioxide 26 Anion Gap 12 BUN 6 L Creatinine 0.6 L Creat Clearance w eGFR > 60 Random Glucose 80 D Calcium 8.4 L Total Bilirubin 0.8 AST 68 H D ALT 57 Alkaline Phosphatase 83 D Total Protein 6.6 Albumin 3.6 Urine Color Straw Urine Appearance Clear Urine pH 5.0 Ur Specific [place] 1.004 Urine Protein Negative Urine Glucose (UA) Negative Urine Ketones Negative Urine Blood Negative Urine Nitrite Negative Urine Bilirubin Negative Urine Urobilinogen Negative Ur Leukocyte Esterase Negative RPR Titer 05/22/16 07:50 WBC RBC Hgb Hct MCV MCHC RDW Plt Count MPV Sodium Potassium Chloride Carbon Dioxide Anion Gap BUN Creatinine Creat Clearance w eGFR Random Glucose Calcium Total Bilirubin AST ALT Alkaline Phosphatase Total Protein Albumin Urine Color Urine Appearance Urine pH Ur Specific [place] Urine Protein Urine Glucose (UA) Urine Ketones Urine Blood Urine Nitrite Urine Bilirubin Urine Urobilinogen Ur Leukocyte Esterase RPR Titer Nonreactive labs noted Assessment: 05/23/16 14:28 withdrawal sx. Plan: continue detox
--- NOTE | 2016-05-23 16:23 | EKG ---
Test Reason : Blood Pressure : / mmHG Vent. Rate : 091 BPM Atrial Rate : 416 BPM P-R Int : 000 ms QRS Dur : 082 ms QT Int : 380 ms P-R-T Axes : 057 033 036 degrees QTc Int : 467 ms SINUS RHYTM MINIMAL VOLTAGE CRITERIA FOR LVH, MAY BE NORMAL VARIANT WHEN COMPARED WITH ECG OF 15-APR-2016 20:43, NO SIGNIFICANT CHANGE WAS FOUND Confirmed by JUSTO VELASQUEZ, MARCO ([id number]) on 05/23/2016 4:22:52 PM Referred By: Esteban Kirkland Confirmed By:MARCO KEMP MD
[2016-05-23] MEDS: chlordiazePOXIDE 5 MG CAPSULE PO SCH ×2 (17:24→22:36)
[2016-05-23] MEDS: THIAMINE HCL 100 MG TABLET (FP) PO SCH (22:36)
[2016-05-23] MEDS: diphenhydrAMINE HCL 50 MG CAPSULE PO PRN (22:36)
[2016-05-24] MEDS: chlordiazePOXIDE 5 MG CAPSULE PO SCH (05:26)
[2016-05-24 06:36] VITALS: BP 117/84; PULSE 92; TEMP 96.9
[2016-05-24] MEDS: HYDROCHLOROTHIAZIDE 25 MG TABLET (FP) PO SCH (09:02)
[2016-05-24] MEDS: NICOTINE 21 MG/24 HOURS TOPICAL PATCH TD SCH (09:02)
[2016-05-24] MEDS: PRENATAL VITAMINS W/ FOLIC ACID TABLET (FP) PO SCH (09:02)
--- NOTE | 2016-05-24 11:24 | DS ---
[facility] Detox Discharge Summary Admission Date: 05/21/16 Discharge Date: 05/24/16 - History Present History: Alcohol Dependence Pertinent Past History: HTN - Physical Exam Results Vital Signs: Vital Signs Temperature 96.9 F L 05/24/16 06:35 Pulse Rate 92 H 05/24/16 06:35 Respiratory Rate 18 05/24/16 06:35 Blood Pressure 117/84 05/24/16 06:35 O2 Sat by Pulse Oximetry (%) Pertinent Admission Physical Exam Findings: withdrawal sx. Laboratory Tests 05/21/16 05/22/16 05/22/16 17:54 07:50 07:50 WBC 4.9 RBC 3.76 L Hgb 11.7 Hct 34.5 L MCV 92.0 MCHC 33.9 RDW 16.6 H D Plt Count 142 MPV 8.5 Sodium 141 Potassium 3.8 Chloride 103 Carbon Dioxide 26 Anion Gap 12 BUN 6 L Creatinine 0.6 L Creat Clearance w eGFR > 60 Random Glucose 80 D Calcium 8.4 L Total Bilirubin 0.8 AST 68 H D ALT 57 Alkaline Phosphatase 83 D Total Protein 6.6 Albumin 3.6 Urine Color Straw Urine Appearance Clear Urine pH 5.0 Ur Specific [place] 1.004 Urine Protein Negative Urine Glucose (UA) Negative Urine Ketones Negative Urine Blood Negative Urine Nitrite Negative Urine Bilirubin Negative Urine Urobilinogen Negative Ur Leukocyte Esterase Negative RPR Titer 05/22/16 07:50 WBC RBC Hgb Hct MCV MCHC RDW Plt Count MPV Sodium Potassium Chloride Carbon Dioxide Anion Gap BUN Creatinine Creat Clearance w eGFR Random Glucose Calcium Total Bilirubin AST ALT Alkaline Phosphatase Total Protein Albumin Urine Color Urine Appearance Urine pH Ur Specific [place] Urine Protein Urine Glucose (UA) Urine Ketones Urine Blood Urine Nitrite Urine Bilirubin Urine Urobilinogen Ur Leukocyte Esterase RPR Titer Nonreactive labs noted - Medication Discharge Medications: Ambulatory Orders Hydrochlorothiazide [Hctz -] 25 mg PO DAILY 03/07/15 Metoprolol Tartrate [Lopressor] 100 mg PO DAILY 03/07/15 - Diagnosis (1) Alcohol dependence with uncomplicated withdrawal Status: Acute (2) Nicotine dependence Status: Acute Qualifiers: Nicotine product type: cigarettes Substance use status: uncomplicated Qualified Code(s): F17.210 - Nicotine dependence, cigarettes, uncomplicated (3) HTN (hypertension) Status: Chronic Qualifiers: Hypertension type: essential hypertension Qualified Code(s): I10 - Essential (primary) hypertension - AMA Did Patient Leave Against Medical Advice: Yes
[2016-05-24] MEDS ORDERED: chlordiazePOXIDE HCL 10 MG CAPSULE PO SCH (17:00)
== END 2016-05-24 09:05 | disposition left against medical advice (07) | DRG 770 ==
LOC: YASAS 12:15 → Y3N 12:54
PROVIDERS: ADMIT Internal Medicine; ATTEND Internal Medicine
PROC: HZ2ZZZZ Detoxification Services for Substance Abuse Treatment (ICD-10-PCS; principal; 2016-05-24)
DX: F10.230 Alcohol dependence with withdrawal, uncomplicated (principal); F17.210 Nicotine dependence, cigarettes, uncomplicated; F10.24 Alcohol dependence with alcohol-induced mood disorder; I10 Essential (primary) hypertension
CPT/HCPCS: 36415; 80053; 81003; 85027; 86593; 93005; 93010